=== PATIENT | male | born 1965 | race Caucasian/White ===

== ENCOUNTER 2023-12-28 02:21 | Emergency (ER) | payer BC ==
[2023-12-28] MEDS: Atropine 0.1 MG/ML 10 ML Syringe IVPUSH ONE ×2 (02:25→02:42)
[2023-12-28] MEDS: EPINEPHrine 1:10,000 1 MG/10 ML Syringe IVPUSH ONE ×3 (02:26→03:10)
[2023-12-28] MEDS: Sodium Chloride 0.9% 1,000 ML IV ONE ×2 (02:29→02:53)
[2023-12-28] MEDS: Amiodarone 150 MG/3 ML SDV IVPUSH ONE (02:34)
[2023-12-28] MEDS ORDERED: Amiodarone 150 MG/3 ML SDV ONE (02:36)
[2023-12-28] MEDS ORDERED: Amiodarone 450 MG/9 ML SDV IV ONE (02:36)
[2023-12-28] MEDS: DOPamine/Dextrose 5%-Water 400 MG/250 ML BAG IV SCH (02:46)
[2023-12-28 02:47] LABS: BASE EXCESS VENOUS -25.6 mm/L; BICARBONATE,VENOUS 15.4 mmol/L; METHEMOGLOBIN 0.9 %; O2 SATURATION VENOUS 15.4; OXYHEMOGLOBIN 15.1 %; TOTAL HEMOGLOBIN 16.7 g/dL (13.5-18.0)
[2023-12-28 02:48] LABS: PCO2 VENOUS 105 mm/Hg; PO2 VENOUS 24.9 mm/Hg
[2023-12-28] MEDS: Naloxone 0.4 MG/ML SDV IV ONE ×2 (02:48→03:12)
[2023-12-28] MEDS: Sodium Bicarbonate 8.4% 50 MEQ/50 ML Syringe IV ONE (02:52)
[2023-12-28] MEDS: EPINEPHrine 1:10,000 1 MG/10 ML Syringe IV ONE ×3 (02:53→03:20)
[2023-12-28 02:57] LABS: AMPHETAMINES SCREEN, URINE NEGATIVE (NEGATIVE); BARBITURATE SCREEN,URINE NEGATIVE (NEGATIVE); BENZODIAZEPINES SCREEN,URINE NEGATIVE (NEGATIVE); METHADONE SCREEN, URINE NEGATIVE (NEGATIVE); METHAMPHETAMINES SCREEN, URINE NEGATIVE (NEGATIVE); OXYCODONE SCREEN,URINE NEGATIVE (NEGATIVE); PROPOXYPHENE SCREEN,URINE NEGATIVE (NEGATIVE); THC SCREEN,URINE 50 NG/ML NEGATIVE (NEGATIVE)
[2023-12-28] MEDS: DOPamine/Dextrose 5%-Water 400 MG/250 ML BAG ONE (03:00)
[2023-12-28] MEDS: EPINEPHrine 1 MG in Sodium Chloride 0.9% 100 ML IV SCH (03:05)
[2023-12-28 03:08] LABS: A/G RATIO 0.9 (1.2-2.2); ALANINE AMINOTRANSFERASE,ALT 39 U/L (12-78); ALBUMIN 4.2 g/dL (3.4-5.0); ALKALINE PHOSPHATASE 119 U/L (46-116); ASPARTATE AMNIOTRANSFERASE,AST 36 U/L (15-37); BLOOD UREA NITROGEN,BUN 23 mg/dL (7-18); CALCIUM 10.1 mg/dL (8.5-10.1); CARBON DIOXIDE,CO2 16 mmol/L (21-32); CHLORIDE,CL 107 mmol/L (100-108); CREATININE 1.6 mg/dL (0.8-1.3); ESTIMATED GFR 50 mL/min (>60); GLUCOSE RANDOM 145 mg/dL (74-106); POTASSIUM,K 4.3 mmol/L (3.6-5.2); SODIUM,NA 154 mmol/L (140-148); TROPONIN I HIGH SENSITIVITY 15.7 pg/mL (<=60.3)
[2023-12-28 03:09] LABS: ANION GAP 35.3 mmol/L (5.0-14.0)
[2023-12-28 03:10] LABS: INR 1.2; PROTHROMBIN TIME 11.6 sec (9.2-10.6); PTT,PARTIAL THROMBOPLSTIN TIME 29.3 sec (21.8-27.3)
[2023-12-28] MEDS: Sodium Bicarbonate 8.4% 50 MEQ/50 ML Syringe IVPUSH ONE (03:11)
[2023-12-28 03:56] LABS: BASE EXCESS VENOUS -16.5 mm/L; BICARBONATE,VENOUS 15.7 mmol/L; O2 SATURATION VENOUS 54.8; PCO2 VENOUS 66.1 mm/Hg; PH,VENOUS 7.005 (7.350-7.450); PO2 VENOUS 45.4 mm/Hg; TOTAL HEMOGLOBIN 13.1 g/dL (13.5-18.0)
[2023-12-28 03:57] LABS: CARBOXYHEMOGLOBIN 1.1 % (0.0-1.6); METHEMOGLOBIN 0.9 %; OXYHEMOGLOBIN 53.7 %
== END 2023-12-28 10:17 | disposition expired ==
LOC: JP.ED 02:21
DX: A41.9 Sepsis, unspecified organism (principal); T50.4X1A Poisoning by drugs affecting uric acid metabolism, accidental (unintentional), initial encounter
CPT/HCPCS: 31500; 36415; 51702; 70450; 71045; 80053; 80305; 80307; 82803; 84484; 85610; 85730; 92950; 96365; 96375; 99285; 99291; J0171; J0282; J0461; J1265; J2310; J3490; J7030